=== PATIENT | female | born 1975 | race Caucasian/White ===

== ENCOUNTER → 2021-06-17 16:58 | Outpatient (CLI) | payer OTHER, SELFPAY ==
[2021-05-27 13:14] VITALS: BMI 35.5
--- NOTE | 2021-06-17 17:05 | MRI_ITS ---
STUDY: MRI CERVICAL SPINE WITH AND WITHOUT CONTRAST REASON FOR EXAM: Female, 46 years old. pain neck and rt arm, MS dx in 2016 TECHNIQUE: Standardized fat and water weighted pulse sequences were obtained in the sagittal and axial following administration of IV dotarem 20ml. COMPARISON: None FINDINGS: Normal foramen magnum and brainstem-cervical cord junction. Normal craniovertebral junction. Normal anterior atlantoaxial articulation. Normal odontoid process. Normal cervical lordosis. Normal vertebral bodies and posterior osseous elements. C2-3: Normal endplates. Normal disc height, signal and morphology. Normal central canal and intervertebral neural foramina. C3-4: Normal endplates. Normal disc height, signal and morphology. Normal central canal and intervertebral neural foramina. C4-5: Mild, noncompressive spondylotic bar. Borderline canal stenosis. Moderate right foraminal stenosis due to uncinate hypertrophy. C5-6: Small central disc protrusion causes mild cord flattening and mild to moderate canal stenosis. Severe foraminal stenosis, greater on the left, due to uncinate hypertrophy. C6-7: Small central disc protrusion causing borderline canal stenosis. No cord flattening. Mild left foraminal encroachment due to uncinate hypertrophy. C7-T1: Normal endplates. Normal disc height, signal and morphology. Normal central canal and intervertebral neural foramina. Normal cervical cord. Normal visualized soft tissue structures. MRI/Spine Cervical W/WO Contrast IMPRESSION: 1. Small disc protrusion at C5-6 with cord flattening and canal stenosis. 2. Small C6-7 disc protrusion with borderline canal stenosis. 3. Moderate to severe foraminal stenosis at C4-5 and C5-6. Electronically Signed: Leyda Stearns MD at 22:56 EDT Tel , Service support ,
== END ==
PROVIDERS: PCP Family Medicine; Referring Provider Orthopaedic Surgery; Visit Provider Orthopaedic Surgery
DX: G35 Multiple sclerosis (principal); M50.20 Other cervical disc displacement, unspecified cervical region
CPT/HCPCS: 72156; A9575